=== PATIENT | male | born 1980 | race Caucasian/White ===

== ENCOUNTER → 2021-11-29 | Day surgery (SDC) | payer OTHER ==
[~2021-11-29] MED LIST: ALLO100T PO; LEVE100020 PO; PANT20TA58 PO
[2021-11-29 12:28] VITALS: BP 141/95
== END | disposition home or self-care (01) ==
LOC: SURG 12:18
PROVIDERS: ATTEND Anesthesiology
DX: M54.50 Low back pain, unspecified (principal); M47.26 Other spondylosis with radiculopathy, lumbar region; I10 Essential (primary) hypertension; M79.18 Myalgia, other site; Z79.899 Other long term (current) drug therapy
CPT/HCPCS: 99204; G0463

== ENCOUNTER → 2021-12-14 | Day surgery (SDC) | payer OTHER ==
[~2021-12-14] MED LIST changes: +0.9 % SODIUM CHLORIDE 10 ML VIAL. ONE; +CYCLOBENZAPRINE PO; +DEXAMETHASONE SOD PHOS 10 MG/ML VIAL. ONE; +IOHEXOL 300 MG/ML 50 ML VIAL. ONE; +LIDOCAINE 1% PF 30 ML VIAL. ONE
[2021-12-14 10:54] VITALS: BP 143/97
== END | disposition home or self-care (01) ==
LOC: SURG 10:01
PROVIDERS: ATTEND Anesthesiology
DX: M47.26 Other spondylosis with radiculopathy, lumbar region (principal); I10 Essential (primary) hypertension; M79.10 Myalgia, unspecified site; Z79.899 Other long term (current) drug therapy; Z98.890 Other specified postprocedural states
CPT/HCPCS: 62323; A4209; A4657; A4930; J1100; Q9967